=== PATIENT | female | born 1940 | race Caucasian/White ===

== ENCOUNTER 2018-05-14 16:59 | Emergency (ER) | payer MEDICARE, MEDICAID ==
[~2018-05-14] VITALS: Ht 144.8 cm; Wt 44.5 kg
[2018-05-14] MEDS ORDERED: MEMA28CA5 PO (17:54)
[2018-05-14] MEDS ORDERED: CLON0.5T11 PO (17:54)
[2018-05-14] MEDS ORDERED: CALC0.25 PO (17:54)
[2018-05-14] MEDS ORDERED: ALEN70TA5 PO (17:54)
[2018-05-14] MEDS ORDERED: LEVO25TA4 PO (17:54)
[2018-05-14] MEDS ORDERED: CARB200T13 PO (17:54)
[2018-05-14 18:23] LABS: BASOPHILS # (AUTO) 0.01 x10^3/uL (0-0.1); BASOPHILS % (AUTO) 0 % (0-1); EOSINOPHILS # (AUTO) 0.04 x10^3/uL (0-0.4); EOSINOPHILS % (AUTO) 1 % (1-7); LYMPHOCYTES # (AUTO) 1.19 x10^3/uL (1-3.4); LYMPHOCYTES % (AUTO) 25 % (22-44); MD NO; MEAN CORPUSCULAR HEMOGLOBIN 33.6 pg (27.0-34.8); MEAN CORPUSCULAR HGB CONC 34.2 g/dL (32.4-35.8); MEAN CORPUSCULAR VOLUME 98.2 fL (80-100); MEAN PLATELET VOLUME 7.9 fL (7.4-10.4); MONOCYTES # (AUTO) 0.41 x10^3/uL (0.2-0.8); MONOCYTES % (AUTO) 9 % (2-9); NEUTROPHILS # (AUTO) 3.12 x10^3/uL (1.8-6.8); NEUTROPHILS % (AUTO) 65 % (42-75); PLATELET COUNT 183 x10^3/uL (130-400); RED BLOOD COUNT 3.17 x10^6/uL (3.82-5.3); RED CELL DISTRIBUTION WIDTH 13.1 % (9.6-15.2)
[2018-05-14] MEDS ORDERED: FOLI-17 PO (18:23)
[2018-05-14] MEDS ORDERED: POLY1DRO OP (18:23)
[2018-05-14] MEDS ORDERED: ILOP8TAB2 PO (18:23)
[2018-05-14] MEDS ORDERED: METH2.5T PO (18:23)
[2018-05-14] MEDS ORDERED: DIVA125T31 PO (18:23)
[2018-05-14] MEDS ORDERED: BENZ1TAB61 PO (18:23)
[2018-05-14] MEDS ORDERED: ESTR0.6246 PO (18:23)
[2018-05-14] MEDS ORDERED: PRAM1TAB PO (18:23)
[2018-05-14 18:32] LABS: ANION GAP 5 mmol/L (5-15); CHLORIDE 108 mmol/L (98-107); CREATININE 0.75 mg/dL (0.55-1.02)
[2018-05-14 19:47] VITALS: BP 136/64
== END 2018-05-14 19:48 | disposition home or self-care (01) ==
LOC: ED 18:41
DX: M71.22 Synovial cyst of popliteal space [Baker], left knee (principal); R60.0 Localized edema; F20.9 Schizophrenia, unspecified; E03.9 Hypothyroidism, unspecified; M06.9 Rheumatoid arthritis, unspecified
CPT/HCPCS: 36415; 80048; 85025; 99285